=== PATIENT | male | born 1945 | race Caucasian/White ===

== ENCOUNTER 2021-08-10 08:28 | Day surgery (SDC) | payer MEDICARE, OTHER ==
[~2021-08-10] VITALS: Ht 177.8 cm; Wt 86.8 kg
[2021-08-10] VITALS (11 sets, daily range): BP systolic 147–168; BP diastolic 87–105
[2021-08-10] MEDS ORDERED: normal saline 1,000 ML IV SCH (09:00)
[2021-08-10] MEDS ORDERED: diphenhydrAMINE 25mg capsule PO PRN (09:00)
[2021-08-10] MEDS ORDERED: CARV6.253 PO (09:22)
[2021-08-10] MEDS ORDERED: LOSA50TA64 PO (09:22)
[2021-08-10] MEDS ORDERED: CARNITINE (09:38)
[2021-08-10] MEDS ORDERED: Vitamin A (09:38)
[2021-08-10] MEDS ORDERED: [UNRECOGNIZED DRUG - OTHER] (09:38)
[2021-08-10] MEDS ORDERED: Lutein (09:38)
[2021-08-10] MEDS ORDERED: Vitamin C (09:38)
[2021-08-10] MEDS ORDERED: BORO1POW2 (09:38)
[2021-08-10] MEDS ORDERED: [UNRECOGNIZED DRUG - OTHER] (09:38)
[2021-08-10] MEDS ORDERED: Nattokinase (09:38)
[2021-08-10] MEDS ORDERED: [UNRECOGNIZED DRUG - OTHER] (09:38)
[2021-08-10] MEDS ORDERED: MELATONIN (09:38)
[2021-08-10] MEDS ORDERED: probiotics (09:38)
[2021-08-10] MEDS ORDERED: [UNRECOGNIZED DRUG - OTHER] (09:38)
[2021-08-10] MEDS ORDERED: [UNRECOGNIZED DRUG - OTHER] (09:38)
[2021-08-10] MEDS ORDERED: Biotin (09:38)
[2021-08-10] MEDS ORDERED: Vitamin D (09:38)
[2021-08-10] MEDS ORDERED: CO Q10 PO (09:38)
[2021-08-10] MEDS ORDERED: PRAS25CA PO (09:38)
[2021-08-10] MEDS ORDERED: [UNRECOGNIZED DRUG - MIXTURE] (09:38)
[2021-08-10] MEDS ORDERED: ASPI-1071 PO (09:38)
[2021-08-10] MEDS ORDERED: OMEG1CAP21 PO (09:38)
[2021-08-10] MEDS ORDERED: [UNRECOGNIZED DRUG - OTHER] (09:38)
[2021-08-10] MEDS ORDERED: [UNRECOGNIZED DRUG - OTHER] (09:38)
[2021-08-10] MEDS ORDERED: Tumeric (09:38)
[2021-08-10] MEDS ORDERED: fentaNYL/PF 50MCG/1 ML 2ML syringe ONE (10:05)
[2021-08-10] MEDS ORDERED: LIDOcaine 1% 30ml preserv. free vial ONE (10:06)
[2021-08-10] MEDS ORDERED: heparin 1,000unit/ml 10ml vial 10 ML ONE (10:06)
[2021-08-10] MEDS ORDERED: midazolam 1 mg/ML 2ml injection ONE (10:06)
[2021-08-10 10:18] LABS: BASOPHILS % (AUTO) 0.4 % (0-1); EOSINOPHILS # (AUTO) 0.1 X10'3 (0-0.9); EOSINOPHILS % (AUTO) 2.1 % (0-6); HEMOGLOBIN 13.7 g/dl (14.0-17.9); LYMPHOCYTES # (AUTO) 0.6 X10'3 (1.1-4.8); LYMPHOCYTES % (AUTO) 13.5 % (21-51); MEAN CORPUSCULAR HEMOGLOBIN 32.7 PG (27.0-31.0); MEAN CORPUSCULAR HGB CONC 34.3 g/dL (33.0-36.5); MEAN CORPUSCULAR VOLUME 95.2 FL (78-98); MEAN PLATELET VOLUME 6.8 FL (7.4-10.4); MONOCYTES # (AUTO) 0.4 X10'3 (0-0.9); MONOCYTES % (AUTO) 8.8 % (2-12); NEUTROPHILS # (AUTO) 3.5 X10'3 (1.8-7.7); NEUTROPHILS % (AUTO) 75.2 % (42-75); PLATELET COUNT 160 X10'3 (140-440); RED CELL DISTRIBUTION WIDTH 13.1 % (11.5-14.5); WHITE BLOOD COUNT 4.6 X10'3 (4.5-11.0)
[2021-08-10 10:28] LABS: ALBUMIN 3.4 G/DL (3.4-5.0); ANION GAP 6 (8-16); BLOOD UREA NITROGEN 25 MG/DL (7-18); BUN/CREATININE RATIO 29.1 (5.4-32.0); CALCIUM 8.9 MG/DL (8.5-10.1); CHLORIDE 110 MMOL/L (99-107); CREATININE 0.86 MG/DL (0.60-1.10); GLUCOSE 108 MG/DL (70-104); POTASSIUM 4.2 MMOL/L (3.5-5.1); SODIUM 142 MMOL/L (135-145); TOTAL CARBON DIOXIDE 25.7 MMOL/L (24-32); eGFR 86 ML/MIN
[2021-08-10] MEDS ORDERED: iohexol 350 MG/1 ML 200ml bottle ONE (11:37)
[2021-08-10] MEDS ORDERED: normal saline 1000ml 1,000 ML IV SCH (13:15)
[2021-08-10] MEDS ORDERED: ondansetron/PF 4mg/2ml inj IV PRN (13:15)
[2021-08-10] MEDS ORDERED: HYDROcodone/acetaminophen 5mg/325mg tablet PO PRN (13:20)
[2021-08-10] MEDS ORDERED: HYDROcodone/acetaminophen 10/325mg tab PO PRN (13:20)
[2021-08-10] MEDS ORDERED: proCHLORperazine 10 MG/2 ml inj IV PRN (13:20)
--- NOTE | 2021-08-10 13:45 | NUR ---
HOB elevated 45 degrees Right groin site stable, no bleeding bruising or hematoma.
--- NOTE | 2021-08-10 16:00 | NUR ---
HOB elevated 90 degrees Right groin site stable, no bleeding bruising or hematoma.
--- NOTE | 2021-08-10 16:15 | NUR ---
Pt up amb in hallway gait steady. Right groin site stable, no bleeding, bruising or hematoma. Written and verbal DC instructions given to pt and , both verbalize understanding.
--- NOTE | 2021-08-10 16:20 | NUR ---
PIV DC cath intact, VSS, Denies pain. Right groin site remains stable, no bleeding, bruising or hematoma. Pt steady on feet able to dress self. DC to home with all belongings with . Transferred to private car via WC, pt able to transfer self to car.
== END 2021-08-10 16:20 | disposition home or self-care (01) ==
LOC: SSTAY O 08:28
PROVIDERS: ATTEND Internal Medicine Cardiovascular Disease
DX: R07.89 Other chest pain (principal); I08.0 Rheumatic disorders of both mitral and aortic valves; I48.20 Chronic atrial fibrillation, unspecified; I25.5 Ischemic cardiomyopathy; E78.5 Hyperlipidemia, unspecified; I11.0 Hypertensive heart disease with heart failure; I50.9 Heart failure, unspecified; N40.0 Benign prostatic hyperplasia without lower urinary tract symptoms; Z90.49 Acquired absence of other specified parts of digestive tract; Z88.1 Allergy status to other antibiotic agents; Z98.41 Cataract extraction status, right eye; Z98.42 Cataract extraction status, left eye; Z98.890 Other specified postprocedural states; Z79.01 Long term (current) use of anticoagulants; Z79.899 Other long term (current) drug therapy; Z95.5 Presence of coronary angioplasty implant and graft; Z82.3 Family history of stroke; Z82.49 Family history of ischemic heart disease and other diseases of the circulatory system
CPT/HCPCS: 36415; 80048; 83735; 85025; 85610; 93005; 93460; 99152; 99153; A6258; C1760; C1769; C1894; J1644; J2250; J3010; J3490; Q9967; A4620